=== PATIENT | male | born 1965 | race Caucasian/White ===

== ENCOUNTER 2017-02-27 18:14 | Emergency (ER) | payer BC, OTHER ==
[~2017-02-27] VITALS: Ht 188 cm; Wt 122.0 kg
[2017-02-27 18:22] VITALS: BP 154/85; PULSE 79; RESP 16; TEMP 98.1; O2SAT 97
[2017-02-27] MEDS ORDERED: SODIUM CHLORIDE 0.9% FLUSH 10 ML FLUSH IVF PRN (18:45)
[2017-02-27] MEDS ORDERED: levETIRAcetam 1000 MG INJ 100 ML IV ONE (18:45)
[2017-02-27 18:47] VITALS: O2SAT 98
--- NOTE | 2017-02-27 18:53 | PD ---
HPI . Seizure Chief Complaint: Seizure Time Seen by Provider: 18:27 Travel History International Travel<30 days: No Contact w/Intl Traveler<30days: No Traveled to known affect area: No History of Present Illness HPI This patient presents by EVAC status post a seizure. History is obtained mainly from his . He had one prior seizure in December 2015. He was subsequently diagnosed with a brain tumor. That has been resected. He has not required chemotherapy or radiation therapy thus far. He is being followed closely in [place] by a team of doctors including Dr. Avalos and Dr Cesar. He has not had any further seizures and his Keppra has been stopped for months. The patient's family state that they were at the movies tonight and that it was extremely loud. The patient had a generalized seizure. EMS was called and he was brought to the hospital. He has bitten his tongue. No other injuries associated with the seizure. The patient's states that his most recent MRI was done on January 26 and is stable. [facility] Past Medical History Diminished Hearing: No Tetanus Vaccination: Unknown Influenza Vaccination: No Social History Alcohol Use: No Tobacco Use: No Substance Use: No Allergies-Medications (Allergen,Severity, Reaction): Coded Allergies: Penicillin (Verified Allergy, Intermediate, Rash, 02/27/17) Review of Systems Except as stated in HPI: all other systems reviewed are Neg Neurologic: Positive: Seizures Physical Exam Narrative GENERAL: Patient is initially postictal. He is able to tell us his name but he is unable to tell us when he had his brain surgery. SKIN: Diaphoretic. HEAD: Atraumatic. Normocephalic. EYES: Pupils equal and round. Extraocular movements are intact. ENT: No nasal bleeding or discharge. Mucous membranes pink and moist. He has an injury to his tongue. NECK: Trachea midline. Neck is supple. CARDIOVASCULAR: Regular rate and rhythm. RESPIRATORY: No accessory muscle use. GASTROINTESTINAL: Abdomen soft, non-tender, nondistended. MUSCULOSKELETAL: No obvious deformities. No edema. NEUROLOGICAL: Awake and alert. Postictal period No obvious cranial nerve deficits. Motor grossly within normal limits. Normal speech. PSYCHIATRIC: Appropriate mood and affect; insight and judgment normal. Data Data Last Documented VS Vital Signs Date Time Temp Pulse Resp B/P Pulse Ox O2 Delivery O2 Flow Rate FiO2 02/27/17 18:47 98 Room Air 02/27/17 18:22 98.1 79 16 154/85 Orders Complete Blood Count With Diff (02/27/17 18:40) Basic Metabolic Panel (Bmp) (02/27/17 18:40) Ecg Monitoring (02/27/17 18:40) Iv Access Insert/Monitor (02/27/17 18:40) Oximetry (02/27/17 18:40) Sodium Chloride 0.9% Flush (Ns Flush) (02/27/17 18:45) Levetiracetam 1000 Mg Inj (Keppra 1000 M (02/27/17 18:45) MDM Medical Decision Making Medical Screen Exam Complete: Yes Emergency Medical Condition: Yes Differential Diagnosis Differential diagnosis of seizure includes but is not limited to epilepsy, electrolyte abnormality, previous stroke, closed head injury Narrative Course This patient presents status post a seizure. He has a known focus for seizure and that he has a history of brain cancer. He has tolerated Her in the past. Therefore, I am loading him with Keppra. His care is being turned over to Dr. Swartz at this time. Diagnosis Primary Impression: Seizure Condition: Stable Corry Funk MD Feb 27, 2017 18:53
[2017-02-27] MEDS ORDERED: ADVA100A INH (18:59)
[2017-02-27] MEDS ORDERED: [UNRECOGNIZED DRUG - CODE] PO (18:59)
[2017-02-27] MEDS ORDERED: LOSA50TA PO (18:59)
[2017-02-27] MEDS ORDERED: ONDA1TAB17 PO (18:59)
[2017-02-27] MEDS ORDERED: MONT10TA4 PO (18:59)
[2017-02-27] MEDS ORDERED: TAMS0.4C4 PO (18:59)
[2017-02-27] MEDS ORDERED: MOBI15TA PO (18:59)
[2017-02-27 19:28] LABS: AUTOMATED NEUTROPHIL # 5.8 TH/MM3 (1.8-7.7); BASOPHIL # 0.1 TH/MM3 (0-0.2); BASOPHIL % 0.5 % (0.0-2.0); EOSINOPHIL # 0.5 TH/MM3 (0-0.4); EOSINOPHIL % 4.1 % (0.0-4.0); HEMATOCRIT 39.9 % (39.0-51.0); HEMO FLAGS DIFF FINAL; LYMPH % 34.6 % (9.0-44.0); LYMPHOCYTE # 3.8 TH/MM3 (1.0-4.8); MEAN CELL VOLUME 86.5 FL (80.0-100.0); MEAN CORPUSCULAR HEMOGLOBIN 30.1 PG (27.0-34.0); MEAN CORPUSCULAR HGB CONC 34.9 % (32.0-36.0); NEUT % 52.8 % (16.0-70.0); PLATELET COUNT 207 TH/MM3 (150-450); RED BLOOD COUNT 4.61 MIL/MM3 (4.50-5.90); RED CELL DISTRIBUTION WIDTH 13.6 % (11.6-17.2)
[2017-02-27 19:56] LABS: BICARBONATE 21.7 MEQ/L (21.0-32.0)
[2017-02-27] MEDS ORDERED: SODIUM CHLOR 0.9% 1000 ML INJ 1,000 ML IV ONE (20:30)
--- NOTE | 2017-02-27 21:05 | PD ---
Data Data Last Documented VS Vital Signs Date Time Temp Pulse Resp B/P Pulse Ox O2 Delivery O2 Flow Rate FiO2 02/27/17 18:47 98 Room Air 02/27/17 18:22 98.1 79 16 154/85 Orders Complete Blood Count With Diff (02/27/17 18:40) Basic Metabolic Panel (Bmp) (02/27/17 18:40) Ecg Monitoring (02/27/17 18:40) Iv Access Insert/Monitor (02/27/17 18:40) Oximetry (02/27/17 18:40) Sodium Chloride 0.9% Flush (Ns Flush) (02/27/17 18:45) Levetiracetam 1000 Mg Inj (Keppra 1000 M (02/27/17 18:45) Sodium Chlor 0.9% 1000 Ml Inj (Ns 1000 M (02/27/17 20:30) Labs Laboratory Tests Test 02/27/17 19:05 White Blood Count 11.0 TH/MM3 Red Blood Count 4.61 MIL/MM3 Hemoglobin 13.9 GM/DL Hematocrit 39.9 % Mean Corpuscular Volume 86.5 FL Mean Corpuscular Hemoglobin 30.1 PG Mean Corpuscular Hemoglobin 34.9 % Concent Red Cell Distribution Width 13.6 % Platelet Count 207 TH/MM3 Mean Platelet Volume 10.8 FL Neutrophils (%) (Auto) 52.8 % Lymphocytes (%) (Auto) 34.6 % Monocytes (%) (Auto) 8.0 % Eosinophils (%) (Auto) 4.1 % Basophils (%) (Auto) 0.5 % Neutrophils # (Auto) 5.8 TH/MM3 Lymphocytes # (Auto) 3.8 TH/MM3 Monocytes # (Auto) 0.9 TH/MM3 Eosinophils # (Auto) 0.5 TH/MM3 Basophils # (Auto) 0.1 TH/MM3 CBC Comment DIFF FINAL Differential Comment Sodium Level 137 MEQ/L Potassium Level 4.0 MEQ/L Chloride Level 104 MEQ/L Carbon Dioxide Level 21.7 MEQ/L Anion Gap 11 MEQ/L Blood Urea Nitrogen 28 MG/DL Creatinine 1.19 MG/DL Estimat Glomerular Filtration 64 ML/MIN Rate Random Glucose 125 MG/DL Calcium Level 8.4 MG/DL [facility] Medical Record Reviewed: Yes Supervised Visit with LEON: No Narrative Course CBC & BMP Diagram 02/27/17 19:[address] Long's notce. The patient received a liter of normal saline. Pt was assessed at approximately 815pm and found resting comfortably in bed. He is ready for discharge. He has follow-up with neurosurgery at [facility]. Diagnosis Primary Impression: Seizure Additional Impression: Prerenal azotemia Med/Other Pt SpecificInfo: No Change to Meds Scripts Levetiracetam (Keppra)250 Mg Ecy510 Mg PO BID #30 TAB Ref 0 Prov:Fran Swartz MD 02/27/17 Disposition: 01 DISCHARGE HOME Condition: Stable Fran Swartz MD Feb 27, 2017 21:05
[2017-02-27] MEDS ORDERED: LEVE250 PO (21:38)
== END 2017-02-27 22:21 | disposition home or self-care (01) ==
LOC: NEPE 18:14
DX: R56.9 Unspecified convulsions (principal); R79.89 Other specified abnormal findings of blood chemistry; Z88.0 Allergy status to penicillin; D49.6 Neoplasm of unspecified behavior of brain
CPT/HCPCS: 80048; 85025; 96374; 99284; J1953